=== PATIENT | male | born 1965 | race Caucasian/White ===

== ENCOUNTER 2024-01-25 12:59 | Emergency (ER) | payer OTHER, SELFPAY ==
[2024-01-25 13:13] VITALS: BP 159/88; PULSE 56; O2SAT 97; BMI 29.5
--- NOTE | 2024-01-25 13:22 | PC.NURSE ---
Laceration to left hand first finger. Patient was using a utility knife and received laceration, bleeding controlled, hand soaked in Hibicle[place]. Patient reports having Tetanus vaccine in 2019.
--- NOTE | 2024-01-25 13:27 | ED_ITS ---
HPI HPI - General Adult General Chief complaint: Extremity Injury, Upper Stated complaint: UPPER LEFT EXTREMITY INJURY Time Seen by Provider: 01/25/24 13:15 Source: patient Mode of arrival: walk-in Limitations: no limitations History of Present Illness HPI narrative: Patient is a 58-year-old male who presents to the emergency department for evaluation of a laceration to the left index finger. Tetanus is up-to-date. He sustained a 2.5 cm laceration to the medial aspect of the left index finger. No other associated injuries. He states he was using a utility knife, bleeding is well-controlled. No crush injury. Related Data Allergies Allergy/AdvReac Type Severity Reaction Status Date / Time bee pollen Allergy Hives Verified 01/25/24 13:12 erythromycin base AdvReac Nausea Verified 01/25/24 13:12 Opioid HPI Opioid Management Most Recent Opioid Data: No Data to Display Review of Systems ROS Constitutional Denies: fever or chills Cardiovascular Denies: chest pain Respiratory Denies: shortness of breath Gastrointestinal Denies: abdominal pain, nausea or vomiting Musculoskeletal Denies: back pain, neck pain or extremity pain Integumentary/Breast Denies: rash Neurological Denies: numbness in extremities or weakness in extremities Hematologic/Lymphatic Denies: easy bruising or easy bleeding [facility] Social History Little interest or pleasure in doing things: not at all Feeling down, depressed, or hopeless: not at all Exam Narrative Exam Narrative: Gen.: Awake, alert, in no distress Head: Normocephalic, atraumatic ENT: Moist mucous membranes Respiratory: No respiratory distress Extremities: 2.5 cm laceration to the medial aspect of the left index finger just distal to the MCP joint. No active bleeding. Normal flexion and extension of the DIP and PIP joints. No obvious deformity. Psych: Normal mood and affect Neuro: No focal neuro deficit Skin: Warm, dry Constitutional Vital Signs, click to edit/add: Last Vital Signs Pulse 56 L 01/25/24 13:13 Resp 18 01/25/24 13:13 BP 159/88 H 01/25/24 13:13 Pulse Ox 97 01/25/24 13:13 O2 Del Method Room Air 01/25/24 13:13 Course Vital Signs Vital signs: Vital Signs Pulse Rate 56 L 01/25/24 13:13 Respiratory Rate 18 01/25/24 13:13 Blood Pressure 159/88 H 01/25/24 13:13 Pulse Oximetry 97 01/25/24 13:13 Oxygen Delivery Method Room Air 01/25/24 13:13 Pulse Rate 56 L 01/25/24 13:13 Respiratory Rate 18 01/25/24 13:13 Blood Pressure 159/88 H 01/25/24 13:13 Pulse Oximetry 97 01/25/24 13:13 Oxygen Delivery Method Room Air 01/25/24 13:13 Medical Decision Making MDM Narrative Medical decision making narrative: Laceration repaired without difficulty. Please see procedure note for details. Follow-up with PCP in 8 to 10 days for suture removal and return to the ER if symptoms change or worsen. Laceration repair: Done under sterile conditions. The use of Shur-Clens prep the area. Local injection with lidocaine 1% was used, approximately 3 cc. The wound was irrigated copiously with normal saline. The wound was explored there was no evidence of foreign material. The laceration was approximated with 3-0 nylon. 5 simple interrupted sutures were placed. Patient tolerated the procedure well. The patient was neurovascularly intact post. the patient had bacitracin applied to the laceration and a dry sterile dressing was place. The patient will need to follow-up in the next 8-10 days for removal SHARED APC VISIT, PHYSICIAN ATTESTATION: [id number] I performed a substantive part of the MDM during the patient?s E/M visit. I personally evaluated and examined the patient. I personally made or approved the documented management plan and acknowledge its risk of complications. Medical Records Medical records reviewed: Yes I reviewed the patient's medical records Discharge Plan Discharge Chief Complaint: Extremity Injury, Upper Clinical Impression: Laceration of finger of left hand Patient Disposition: Home, Self-Care Time of Disposition Decision: 13:26 Condition: Good Print Language: Somali Instructions: Finger Laceration (ED) Additional Instructions: Sutures removed in 8-10 days with PCP Referrals: JAGUAR HENDERSON [Primary Care Provider] - 1 week
[2024-01-25] MEDS: BACITRACIN 0.9 GM PACKET 1 PACKET TOPICAL (13:43)
[2024-01-25] MEDS: LIDOCAINE HCL 1% 100 MG/10 ML MDV INJ (13:44)
== END 2024-01-25 14:02 | disposition home or self-care (01) ==
PROVIDERS: Emergency Provider Emergency Medicine; PCP Family Medicine
DX: S61.211A Laceration without foreign body of left index finger without damage to nail, initial encounter (principal); W26.0XXA Contact with knife, initial encounter
CPT/HCPCS: 12001; 99284